=== PATIENT | female | born 1960 | race Caucasian/White ===

== ENCOUNTER → 2019-11-13 | Outpatient (CLI) | payer OTHER ==
--- NOTE | 2019-11-13 13:55 | US ---
EXAMINATION TYPE: US venous doppler duplex LE DATE OF EXAM: 11/13/2019 1:42 PM COMPARISON: NONE CLINICAL HISTORY: M79.662 pain in left lower leg, R22.42 Localized. SIDE PERFORMED: Bilateral TECHNIQUE: The lower extremity deep venous system is examined utilizing real time linear array sonog robin with graded compression, doppler sonography and color-flow sonography. VESSELS IMAGED: External Iliac Vein (EIV) Common Femoral Vein Deep Femoral Vein Greater Saphenous Vein * Femoral Vein Popliteal Vein Small Saphenous Vein * Proximal Calf Veins (* superficial vessels) Right Leg: Negative for DVT Left Leg: Negative for DVT IMPRESSION: 1. Bilateral lower extremity ultrasound negative for deep venous thrombosis.
--- NOTE | 2019-11-13 14:32 | XR ---
EXAMINATION TYPE: XR cervical spine comp DATE OF EXAM: 11/13/2019 COMPARISON: None HISTORY: Cervicalgia TECHNIQUE: Five-view cervical spine FINDINGS: Degenerative changes are through the cervical spine. There is moderate narrowing of the lef t C6-7 foramen. Some mild right C5-6 foraminal narrowing is present. There is loss of disc height C3-4 C4-5 C5-6. Anterior vertebral body spurring is present at these lev els. There is an anterior grade 1 spondylolisthesis of L3 anteriorly on L4 and milder L2 on L3. IMPRESSION: 1. Spondylolisthesis of C2 on C3 and C3 on C4. 2. Multilevel degenerative disc changes with loss of disc height mid cervical spine. 3. Facet degenerative changes. 4. Foraminal narrowing in the lower cervical spine discussed above
== END | disposition home or self-care (01) ==
LOC: RADUSWWP 13:04
PROVIDERS: ATTEND Internal Medicine
DX: M79.661 Pain in right lower leg (principal); M79.662 Pain in left lower leg; R22.43 Localized swelling, mass and lump, lower limb, bilateral; Z88.6 Allergy status to analgesic agent; M48.02 Spinal stenosis, cervical region; M43.12 Spondylolisthesis, cervical region; M47.812 Spondylosis without myelopathy or radiculopathy, cervical region
CPT/HCPCS: 72050; 93970

== ENCOUNTER → 2019-12-07 | Outpatient (CLI) | payer OTHER ==
[2019-12-07 15:25] LABS: HCT 40.4 % (34.0-46.0); HGB 12.8 gm/dL (11.4-16.0); MCH 33.9 pg (25.0-35.0); MCHC 31.8 g/dL (31.0-37.0); MCV 106.6 fL (80.0-100.0); Macrocytosis Moderate; Mean Platelet Volume 7.4; Platelet Count 134 k/uL (150-450); RBC 3.79 m/uL (3.80-5.40); RDW 13.9 % (11.5-15.5); WBC 6.1 k/uL (3.8-10.6)
== END | disposition home or self-care (01) ==
LOC: LABPAT 14:50
PROVIDERS: ATTEND Anesthesiology
DX: Z01.812 Encounter for preprocedural laboratory examination (principal)
CPT/HCPCS: 36415; 85027

== ENCOUNTER 2019-12-09 06:17 | Day surgery (SDC) | payer OTHER ==
[2019-12-07 12:51] VITALS: BMI 22.8
[~2019-12-09 06:17] MED LIST: DEXAMETHASONE SOD PHOSPHATE 10 MG/ML 1 ML VIAL IV ONE; HEPARIN SODIUM,PORCINE 5,000 UNIT/ML 1 ML VIAL SQ ONE; HYDROmorphone 0.5 MG/0.5 ML SYRINGE IVP PRN; LACTATED RINGERS 1,000 ML IV SCH; LIDOCAINE 1% 20 ML VIAL (10MG/ML) FOR IV START INTRADERMA PRN; ONDANSETRON 4 MG/2 ML VIAL IVP ONE; SCOPOLAMINE 1.5MG/72HR PATCH TRANSDERM ONE
[2019-12-09] MEDS ORDERED: MIDAZOLAM 2 MG/2 ML VIAL IVP ONE (07:06)
[2019-12-09] MEDS ORDERED: fentaNYL (PF) 50 MCG/ML 2 ML AMP IVP ONE (07:07)
--- NOTE | 2019-12-09 07:58 | P.GSHP ---
History of Present Illness H&P Date: 12/09/19 Chief Complaint: Umbilical hernia Is a 59-year-old female who presents today for laparoscopic robotic system repair of umbilical hernia. Patient developed a tender mass at her umbilicus. Past Medical History Past Medical History: COPD, Liver Disease, Osteoarthritis (OA) Additional Past Medical History / Comment(s): Hepatitis C. Umbilical Hernia. History of Any Multi-Drug Resistant Organisms: None Reported Past Surgical History: Hernia Repair, Orthopedic Surgery Additional Past Surgical History / Comment(s): Right ankle surgery, heart surgery as baby. Past Anesthesia/Blood Transfusion Reactions: No Reported Reaction Past Psychological History: Depression Smoking Status: Current every day smoker Past Alcohol Use History: None Reported Additional Past Alcohol Use History / Comment(s): Has been smoking for 20 yrs, cut down to 3-4 cigarettes per day. Past Drug Use History: None Reported - Past Family History Mother Family Medical History: Unable to Obtain Additional Family Medical History / Comment(s): Patient adopted. Family hx unknown. Son(s) Family Medical History: No Reported History Medications and Allergies Home Medications Medication Instructions Recorded Confirmed Type Citalopram Hydrobromide [CeleXA] 20 mg PO [facility] 04/21/14 12/09/19 History Ergocalciferol [Vitamin D2] 50,000 unit PO 12/07/19 12/09/19 History Inhaler (Unknown Name) 1 puff INHALATION [facility] 12/07/19 12/09/19 History Allergies Allergy/AdvReac Type Severity Reaction Status Date / Time No Known Allergies Allergy Verified 12/09/19 06:32 Surgical - Exam Vital Signs Temp Pulse Resp BP Pulse Ox 98.1 F 87 15 125/81 96 12/09/19 06:41 12/09/19 06:41 12/09/19 06:41 12/09/19 06:41 12/09/19 06:41 - General well developed, well nourished, no distress - Eyes PERRL - ENT normal pinna - Neck no masses - Respiratory normal expansion - Cardiovascular Rhythm: regular - Abdomen Abdomen: soft, non tender Assessment and Plan Assessment: Umbilical hernia. We'll perform laparoscopic robotic-assisted repair.
[2019-12-09] MEDS ORDERED: MIDAZOLAM 2 MG/2 ML VIAL ONE (08:08)
[2019-12-09] MEDS ORDERED: ROCURONIUM BROMIDE 10 MG/ML 10 ML VIAL IV ONE (08:08)
[2019-12-09] MEDS ORDERED: KETAMINE 10 MG/ML 20 ML VIAL ONE (08:08)
[2019-12-09] MEDS ORDERED: KETOROLAC 30 MG/ML 1 ML VIAL ONE (08:08)
[2019-12-09] MEDS ORDERED: PROPOFOL 10 MG/ML 20 ML VIAL IV ONE (08:08)
[2019-12-09] MEDS ORDERED: LIDOCAINE 1% INJ 10MG/ML (20 ML MDV) ONE (08:08)
[2019-12-09] MEDS ORDERED: GLYCOPYRROLATE 0.2 MG/ML 2 ML VIAL ONE (08:08)
[2019-12-09] MEDS ORDERED: fentaNYL (PF) 50 MCG/ML 2 ML AMP ONE (08:08)
[2019-12-09] MEDS ORDERED: NEOSTIGMINE 1 MG/ML 10 ML VIAL ONE (08:08)
[2019-12-09] MEDS ORDERED: SUCCINYLCHOLINE CHLORIDE 100 MG/5 ML SYR IV ONE (08:08)
[2019-12-09] MEDS ORDERED: HYDROmorphone (PF) 1 MG/ML ONE (08:08)
[2019-12-09] MEDS ORDERED: ROPIVACAINE 5 MG/ML 30 ML VIAL ONE (08:08)
[2019-12-09] MEDS ORDERED: BUPIVACAIN-EPI 0.25%-1:200,000 30 ML VIAL SQ ONE (08:33)
--- NOTE | 2019-12-09 08:37 | P.ANPRN ---
Procedure Note - Anesthesia - Nerve Block Performed Right Rectus Abdominis Single Time Out Performed: Yes (705) Date of Procedure: 12/09/19 Procedure Start Time: 07:06 Procedure Stop Time: 07:08 Location of Patient: PreOp Indication: Acute Post-Operative Pain, Requested by Surgeon Specifically requested for management of pain by DrSammy: Nikolay Renee Sedation Type: Sedate with meaningful contact maintained Preparation: Sterile Prep Position: Supine Catheter: None Needle Types: Pajunk Needle Gauge: 20 Ultrasound used to visualize needle placement: Yes Ultrasound used to observe medication spread: Yes Injectate: Other (see comment) (Ropi 0.25% 15cc) Blood Aspirated: No Pain Paresthesia on Injection Noted: No Resistance on Injection: Normal Image Stored and Saved: Yes Events: Uneventful and Well Tolerated Left Rectus Abdominis Single Time Out Performed: Yes (705) Date of Procedure: 12/09/19 Procedure Start Time: 07:09 Procedure Stop Time: 07:12 Location of Patient: PreOp Indication: Acute Post-Operative Pain, Requested by Surgeon Specifically requested for management of pain by DrSammy: Ashwin Rodríguez Sedation Type: Sedate with meaningful contact maintained Preparation: Sterile Prep Position: Supine Catheter: None Needle Types: Pajunk Needle Gauge: 20 Ultrasound used to visualize needle placement: Yes Ultrasound used to observe medication spread: Yes Injectate: Other (see comment) (Ropi 0.25%) Blood Aspirated: No Pain Paresthesia on Injection Noted: No Resistance on Injection: Normal Image Stored and Saved: Yes Events: Uneventful and Well Tolerated
--- NOTE | 2019-12-09 09:20 | P.OP ---
Date of Procedure: 12/09/19 Preoperative Diagnosis: Umbilical hernia Postoperative Diagnosis: Incarcerated umbilical hernia Procedure(s) Performed: Laparoscopic robotic-assisted repair of incarcerated umbilical hernia Partial omentectomy Anesthesia: DARYL Surgeon: Nikolay Renee Estimated Blood Loss (ml): 5 Pathology: other (Omentum/hernia sac) Condition: stable Disposition: PACU Description of Procedure: TThe patient was placed on the operating table in the supine position. He received general anesthesia. His abdomen was prepped and draped usual fashion. Using a 5 mm optical trocar under direct visualization the peritoneal cavity was entered in the left upper quadrant. The abdomen was then insufflated. The laparoscope was placed back into the perineal cavity. Next a 8 mm robotic trocar was placed in the left lower quadrant and a 12 mm robotic trocar was placed in the left lateral position. The original 5 mm trocar was exchanged for a 8 mm robotic trocar. The patient's placed in the left side up position. And the patient was undocked the robot. The umbilical hernia was visualized. Using hook cautery the peritoneum over the umbilical hernia was excised. The incarcerated omentum was dissected free and sent to pathology. The fascial opening was repaired using 0V LOC suture. Next a piece of 11 cm round ventral light ST mesh was placed into the. Cavity and secured with 2 OV lock suture. The patient was undocked the robot. The needles were retrieved. The fascia of the 12 mm trocar site was closed with 0 Ethibond suture. Skin was closed interrupted 3-0 Monocryl suture. Dermabond dressings was applied. Patient top procedure well and was sent to recovery room stable condition.
[2019-12-09 09:27] VITALS: TEMP 97.3
[2019-12-09] MEDS ORDERED: LACTATED RINGERS 1,000 ML IV ONE (09:41)
[2019-12-09 10:31] VITALS: RESP 16
[2019-12-09 10:39] VITALS: BP 122/73; PULSE 92
== END 2019-12-09 10:54 | disposition home or self-care (01) ==
LOC: OR 06:17
PROVIDERS: ATTEND Surgery
DX: K42.0 Umbilical hernia with obstruction, without gangrene (principal); J44.9 Chronic obstructive pulmonary disease, unspecified; M19.90 Unspecified osteoarthritis, unspecified site; F32.9 Major depressive disorder, single episode, unspecified; F17.210 Nicotine dependence, cigarettes, uncomplicated; Z88.6 Allergy status to analgesic agent; Z86.19 Personal history of other infectious and parasitic diseases
CPT/HCPCS: 49653; 64488; 88302; C1781; J2250; J1644; J1100; J2710; J2405; J2001; J3010; J1885; J1170; J2795; J0330; J2704

== ENCOUNTER → 2019-12-23 | Outpatient (CLI) | payer OTHER ==
--- NOTE | 2019-12-23 13:10 | XR ---
EXAMINATION TYPE: XR ankle limited RT DATE OF EXAM: 12/23/2019 CLINICAL HISTORY: Left ankle pain. Prior fracture, surgically fixated. Recent fall. Pain is localized to the medial ankle. TECHNIQUE: Frontal and lateral images of the left ankle are obtained. COMPARISON: None. FINDINGS: Prior fracture deformity is seen of the distal tibial diaphysis with surgical fixation of t he medial malleolus and lateral malleolus. There is narrowing of the tibiotalar joint with opposing s urface sclerosis. Subtle lucency is seen of the medial talar dome and osteochondral defect is possibl e. No acute fracture is seen of the ankle. Os trigonum is incidentally noted. IMPRESSION: 1. No acute fracture of the right ankle. 2. Possible medial talar dome osteochondral defect with narrowing of the tibiotalar joint space.
== END | disposition home or self-care (01) ==
LOC: RADXRMAIN 10:19
PROVIDERS: ATTEND Internal Medicine
DX: M25.571 Pain in right ankle and joints of right foot (principal)

== ENCOUNTER → 2020-01-22 | Outpatient (CLI) | payer OTHER ==
[2020-01-22 14:12] LABS: HCT 42.6 % (34.0-46.0); HGB 13.3 gm/dL (11.4-16.0); MCH 32.8 pg (25.0-35.0); MCHC 31.2 g/dL (31.0-37.0); MCV 105.1 fL (80.0-100.0); Macrocytosis Moderate; Platelet Count 118 k/uL (150-450); RBC 4.05 m/uL (3.80-5.40); RDW 13.9 % (11.5-15.5); WBC 4.3 k/uL (3.8-10.6)
[2020-01-22 18:34] LABS: T4, Free (Free Thyroxine) 1.1 ng/dL (0.80-1.80)
[2020-01-22 18:39] LABS: African American GFR (CKD) 115.6 (60.0-200.0); Albumin 3.3 g/dL (3.80-4.90); Albumin/Globulin Ratio 0.89 (1.60-3.17); Anion Gap 6.4 mmol/L (4.00-12.00); BUN/Creat Ratio 16.67 Ratio (12.00-20.00); Calcium 8.3 mg/dL (8.7-10.3); Carbon Dioxide 23.6 mmol/L (21.6-31.8); Globulin 3.7 g/dL (1.6-3.3); Non-African American GFR(CKD) 99.8 (60.0-200.0); Potassium 3.9 mmol/L (3.5-5.5); Total Bilirubin 1.2 mg/dL (0.2-1.2)
== END | disposition home or self-care (01) ==
LOC: LABWHC1 13:33
PROVIDERS: ATTEND Physician Assistant
DX: R41.3 Other amnesia (principal)
CPT/HCPCS: 36415; 80053; 82607; 84207; 84439; 84443; 84481; 85027